=== PATIENT | female | born 1955 | race Caucasian/White ===

== ENCOUNTER 2018-10-19 05:59 | Inpatient (IN) | payer OTHER ==
[2018-10-18 11:06] LABS: CREATININE SERUM 1.1 mg/dL (0.6-1.0); POTASSIUM SERUM 4.2 mmol/L (3.5-5.1)
[~2018-10-19] VITALS: Ht 154.9 cm; Wt 76.0 kg
[2018-10-19 06:28] VITALS: BP 134/82
[2018-10-19 09:38] VITALS: BP 129/58
[2018-10-19 10:07] LABS: CALCIUM 8.9 mg/dL (8.5-10.1); CARBON DIOXIDE 27.2 mmol/L (21-32); CREATININE SERUM 1.1 mg/dL (0.6-1.0); POTASSIUM SERUM 4.1 mmol/L (3.5-5.1)
[2018-10-19 12:30] VITALS: BP 116/64
[2018-10-19 13:21] VITALS: BP 116/64
[2018-10-19 17:26] VITALS: BP 115/77
[2018-10-19 21:31] VITALS: BP 116/63
[2018-10-20 06:08] LABS: BASOPHIL % 0.1 % (0-2); PLATELET COUNT 189 x10^3mcL (130-400); RED CELL DISTRIBUTION WIDTH 14.1 % (11.5-14.5)
[2018-10-20 06:23] VITALS: BP 90/33
[2018-10-20 06:33] VITALS: BP 90/33
[2018-10-20 08:49] VITALS: BP 110/56
[2018-10-20 17:54] VITALS: BP 126/67
[2018-10-20 20:51] VITALS: BP 109/65
[2018-10-21 05:09] VITALS: BP 112/53
[2018-10-21 11:28] VITALS: BP 112/53
[2018-10-21 11:53] VITALS: BP 120/61
== END 2018-10-21 14:16 | disposition home or self-care (01) | DRG 519 ==
LOC: MU 05:59
PROVIDERS: ADMIT Obstetrics & Gynecology
PROC: 0UB20ZZ Excision of Bilateral Ovaries, Open Approach (ICD-10-PCS; 2018-10-19)
PROC: 0UB70ZZ Excision of Bilateral Fallopian Tubes, Open Approach (ICD-10-PCS; 2018-10-19)
PROC: 0UT90ZZ Resection of Uterus, Open Approach (ICD-10-PCS; principal; 2018-10-19 07:30)
DX: D25.9 Leiomyoma of uterus, unspecified (principal); I10 Essential (primary) hypertension; N73.6 Female pelvic peritoneal adhesions (postinfective); Z91.041 Radiographic dye allergy status
CPT/HCPCS: 94150; J0690; J1170; J2175; J2250; J2405; J3010; J3490; J7120